=== PATIENT | male | born 1965 | race Caucasian/White ===

== ENCOUNTER 2022-03-21 20:39 | Emergency (ER) | payer OTHER, SELFPAY ==
[2022-03-21 20:47] VITALS: BP 118/73; PULSE 63; RESP 16; TEMP 36.6; O2SAT 98; BMI 23.2
[2022-03-21 21:23] VITALS: BP 118/73; PULSE 63; RESP 16; TEMP 36.6; O2SAT 98
--- NOTE | 2022-03-21 21:28 | ED.NURSE ---
pt. left without signing d/c papers.
--- NOTE | 2022-03-21 21:33 | W.PC.EDHO ---
Primary Language: Preferred Language: Orientation Status: [x] Alert & Oriented [] Slight Confusion [] Known Dx Dementia Transfers By: [] Assist of 1 [] Assist of 2 [] Lift Description of Symptoms ED Triage Present Problem L elbow swelling yesterday, reduced by evening, Description this AM increased again with bruising to elbow and veins very dark colored. 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 denies any hx of clotting or blood thinners. ED Triage Date of Onset of 03/20/22 Symptoms Oxygen Administration Pulse Oximetry 98 Pulse Oximetry 98 Oxygen Delivery Method Room Air Oxygen Delivery Method Room Air
[2022-03-21 21:36] VITALS: BP 118/73; PULSE 63; RESP 16; TEMP 36.6
--- NOTE | 2022-03-21 21:53 | ED_ITS ---
HPI - Extremity Injury (Upper) General Chief Complaint: Extremity Pain/Injury, Upper Stated Complaint: Left arm swelling, darkened veins Time Seen by Provider: 03/21/22 21:13 Source: patient, family and RN notes reviewed History of Present Illness HPI narrative: 56-year-old man presenting to the emergency department with swelling at his left elbow and discoloration with prominent veins on the left forearm. Yesterday morning seemed to be spontaneous rather quick swelling of what looks to be olecranon process area. Painless. Does not recall injury. Works in construction. Does not have any bleeding problems that he knows of. Has never had trouble bleeding/clotting before. No shortness of breath cough in particular. No loss of sensation distally. It was definitely more swollen before and is less so now. Spouse has pictures. I see a very prominent swelling racketball-sized off of the olecranon in her photos. He is right- handed. Related Data Home Medications Medication Instructions Recorded Confirmed No Known Home Medications 03/21/22 03/21/22 Allergies Allergy/AdvReac Type Severity Reaction Status Date / Time No Known Drug Allergies Allergy Verified 03/21/22 20:50 Review of Systems Status of ROS: Reports: 6 or more systems reviewed and unremarkable except as noted in History and below PFSH PFSH Family History Mother Aneurysm Social History Smoking Status: Unknown if ever smoked Do you use any of these nicotine containing products: None How often do you have a drink containing alcohol: 4 or more times a week How many standard drinks containing alcohol do you have on a typical day: 1 or 2 AUDIT-C Alcohol total score: 4 Non-prescribed substance use: denies use Exam Narrative: Exam Narrative: General: Tanned. Well muscled, tall. nad, breathing easily. CN 2 - 12 intact. Mentating normally. Speaking easily. Skin: warm and dry and well-perfused peripherally without apparent rash. There is a and sized area what looks to be some bruising fullness in the mid volar forearm, medial side. With within that are well demarcated darkened/enhanced lines of underlying veins HEENT: head looks atraumatic. Eyes are non-icteric, without sclera injection, PERRLA. Cardiac: RRR Lungs/Chest: clear with equal expansion/excursion, Musculoskeletal/Extremities: Moving all extremities without difficulty. Without pain to palpation. No extremity edema other than the fullness in the forearm as mentioned above. There is however soft swelling in maximal diameter about 2 in off the olecranon process. Intradermal bruising/erythema is evident in the skin nontender. No calor. Relatively fluctuant as opposed to tense. Const: Vital Signs, click to edit/add: Vital Signs - 24 hr 03/21/22 20:47 03/21/22 21:23 03/21/22 21:36 Temperature 97.9 F 97.9 F 97.9 F Pulse Rate 63 Pulse Rate [Left R adial] 63 63 Respiratory Rate 16 16 16 Blood Pressure 118/73 Blood Pressure [Ri ght Upper Arm] 118/73 118/73 Pulse Oximetry 98 98 Documenting provider has reviewed patient's vital signs: yes Course Course Hospital Course: Examine interview as above Vital Signs Vital signs: Initial Vital Signs Temperature 97.9 F 03/21/22 20:47 Temperature Source Temporal Artery Scan 03/21/22 20:47 Pulse Rate 63 03/21/22 20:47 Pulse Rhythm 03/21/22 20:47 Respiratory Rate 16 03/21/22 20:47 Blood Pressure 118/73 03/21/22 20:47 Blood Pressure Mean 88 03/21/22 20:47 Blood Pressure Position Sitting 03/21/22 20:47 Pulse Oximetry 98 03/21/22 20:47 Oxygen Delivery Method 03/21/22 20:47 Vital Signs Temperature 97.9 F 03/21/22 20:47 Pulse Rate 63 03/21/22 20:47 Respiratory Rate 16 03/21/22 20:47 Blood Pressure 118/73 03/21/22 20:47 Pulse Oximetry 98 03/21/22 20:47 Temperature 97.9 F 03/21/22 21:36 Pulse Rate 63 03/21/22 21:36 Respiratory Rate 16 03/21/22 21:36 Blood Pressure 118/73 03/21/22 21:36 Pulse Oximetry 98 03/21/22 21:23 MDM - Extremity Injury (Upper) MDM Narrative Medical decision making narrative: Traumatic olecranon bursitis, DVT, cellulitis, elbow fracture would be included in differential Discharge Plan Discharge Clinical Impression: Olecranon bursitis of left elbow Patient Disposition: Home, Self-Care Condition: Stable Instructions: Elbow Bursitis (ED) Additional Instructions: Try to avoid traumatizing this again. Maybe make a donut like we talked about and hold on with an Miguel wrap. I think this is a hematoma in or around the bursa of the olecranon process at the elbow, that is mobilizing distally and that is the bruising seen into your forearm. Watch otherwise for marked increase in swelling, pain, heat, redness. Follow up if it starts to cause increasing discomfort, or if not resolved in 2 weeks. Prescriptions: No Action No Known Home Medications 0RF Stand Alone Forms: [facility] Info Instructions
== END 2022-03-21 21:37 | disposition home or self-care (01) ==
LOC: ED 21:32
PROVIDERS: Emergency Provider Family Medicine
DX: M70.22 Olecranon bursitis, left elbow (principal)
CPT/HCPCS: 99283